=== PATIENT | female | born 1970 | race African-American/Black ===

== ENCOUNTER 2018-05-12 15:04 | Emergency (ER) | payer OTHER ==
[~2018-05-12] VITALS: Ht 157.5 cm; Wt 71.2 kg
[2018-05-12] MEDS ORDERED: IPRATRPIUM/ALBUTEROL 0.5/2.5MG 3 ML NEBU. NEB ONE (15:15)
--- NOTE | 2018-05-12 15:20 | EKG ---
[facility] [address] [place] [address] Test Date: 2018-05-12 Test Time: 15:09:41 Pat Name: CASI COWART Department: Room: Gender: F Business Process Representative: : 1970 Requested By: MICHELINE MONGE Order Number: [id number] Reading MD: Wesley Nation Measurements Intervals [place] Rate: 91 P: 63 MA: 140 QRS: 37 QRSD: 98 T: 31 QT: 340 QTc: 420 Interpretive Statements SINUS RHYTHM INCOMPLETE RIGHT BUNDLE BRANCH BLOCK T ABNORMALITY IN ANTERIOR LEADS Electronically Signed On 05-16-2018 11:07:40 QUALITY INTERN by Wesley Nation
--- NOTE | 2018-05-12 15:24 | PHYS DOC ---
Past Medical History Past Medical History: Depression, High Cholesterol, Hypertension Additional Past Medical Histor: SEASONAL ALLERGIES Past Surgical History: Cholecystectomy, Tubal ligation Alcohol Use: Occasionally Drug Use: Marijuana Adult General Chief Complaint Chief Complaint: CHEST PAIN HPI HPI 47-year-old female presents to ER via POV with complaints of cold-like symptoms with nonproductive cough and congestion which started yesterday. Patient states she was resting and had sudden onset of mid chest pain which increases with coughing episodes. Patient denies pain radiates into extremities, neck, or back. She denies swelling in extremities. Patient reports she's been coughing up yellow phlegm and took ibuprofen 800 mg around 12 PM yesterday which improved her chest pain. Patient denies any other family members with cold-like illness. She denies any GI symptoms reports appetite has been slightly decreased since yest. with onset of sxs. She reports she has not checked her temperature but has felt warm since yesterday. Patient denies urinary symptoms. LMP 04/03/18 with patient reporting she has irregular cycles. Pt denies recent travel. She reports she smokes <1/2 ppd of cigarettes. She denies family CAD hx. HEART score 2. Review of Systems Review of Systems Constitutional: Reports feeling warm. Reports fatigued since onset of cold like sxs Eyes: Denies change in visual acuity, redness, or eye pain [] HENT: Denies sore throat. Reports sinus congestion Respiratory: Reports prod. cough with yellow phlegm Cardiovascular: Reports mid CP GI: Denies abdominal pain, nausea, vomiting, bloody stools or diarrhea [] : Denies urinary sxs Musculoskeletal: Denies back/neck pain or joint pain [] Integument: Denies rash, swelling or skin lesions [] Neurologic: Denies headache, focal weakness or sensory changes. Denies dizziness All other systems were reviewed and found to be within normal limits, except as documented in this note. Current Medications Current Medications Current Medications Medications (Trade) Dose Ordered Sig/Afsaneh Start Time Stop Time Status Last Admin Dose Admin Albuterol/ Ipratropium (Duoneb) 3 ml 1X ONCE 05/12/18 15:15 05/12/18 15:20 DC 05/12/18 15:38 3 ML Prednisone (Prednisone) 50 mg 1X ONCE 05/12/18 15:30 05/12/18 15:31 DC 05/12/18 15:29 50 MG Allergies Allergies Allergies Coded Allergies Type Severity Reaction Last Updated Verified fentanyl Allergy Intermediate RASH 10/11/14 Yes Physical Exam Physical Exam Constitutional: Well developed, well nourished, no acute distress, non-toxic appearance. [] HENT: Normocephalic, atraumatic, bilateral external ears normal- bilat. erythema at TM without bulging/perforation/purulent drainage, oropharynx moist- pharyngeal erythema without tonsillar swelling, no oral exudates, nose normal. [ ] Eyes: Pupils equal, conjunctiva normal, no discharge. [] Neck: Normal range of motion, no tenderness, supple, no stridor. [] Cardiovascular: Heart rate regular rhythm, no murmur [] Lungs & Thorax: Bilateral breath sounds clear to auscultation- diminished air movement in all lung paez with less air movement in bases. Resp. equal/ nonlabored and pt speaking in full sentences Abdomen: Bowel sounds normal, soft, no tenderness, no masses, no pulsatile masses. [] Skin: Warm, dry, no erythema, no rash. [] Back: No tenderness, no CVA tenderness. [] Extremities: No tenderness, no cyanosis, no clubbing, ROM intact, no edema. [] Neurologic: Alert and oriented X 3, normal motor function, normal sensory function, no focal deficits noted. [] Psychologic: Affect normal, judgement normal, mood normal. [] Current Patient Data Vital Signs Vital Signs Date Time Temp Pulse Resp B/P (MAP) Pulse Ox O2 Delivery O2 Flow Rate FiO2 05/12/18 15:41 96 Room Air 05/12/18 15:15 97.9 91 20 157/104 (121) 97.9 Lab Values Laboratory Tests Test 05/12/18 15:15 05/12/18 15:25 05/12/18 15:30 05/12/18 15:33 White Blood Count 7.1 x10^3/uL (4.0-11.0) Red Blood Count 4.32 x10^6/uL (3.50-5.40) Hemoglobin 12.1 g/dL (12.0-15.5) Hematocrit 36.9 % (36.0-47.0) Mean Corpuscular Volume 85 fL (79-100) Mean Corpuscular Hemoglobin 28 pg (25-35) Mean Corpuscular Hemoglobin Concent 33 g/dL (31-37) Red Cell Distribution Width 16.5 % (11.5-14.5) H Platelet Count 312 x10^3/uL (140-400) Neutrophils (%) (Auto) 44 % (31-73) Lymphocytes (%) (Auto) 44 % (24-48) Monocytes (%) (Auto) 7 % (0-9) Eosinophils (%) (Auto) 4 % (0-3) H Basophils (%) (Auto) 1 % (0-3) Neutrophils # (Auto) 3.1 x10^3uL (1.8-7.7) Lymphocytes # (Auto) 3.1 x10^3/uL (1.0-4.8) Monocytes # (Auto) 0.5 x10^3/uL (0.0-1.1) Eosinophils # (Auto) 0.3 x10^3/uL (0.0-0.7) Basophils # (Auto) 0.1 x10^3/uL (0.0-0.2) Sodium Level 140 mmol/L (136-145) Potassium Level 4.3 mmol/L (3.5-5.1) Chloride Level 103 mmol/L (98-107) Carbon Dioxide Level 28 mmol/L (21-32) Anion Gap 9 (6-14) Blood Urea Nitrogen 14 mg/dL (7-20) Creatinine 0.6 mg/dL (0.6-1.0) Estimated GFR (Cockcroft-Gault) 129.1 BUN/Creatinine Ratio 23 (6-20) H Glucose Level 104 mg/dL (70-99) H Calcium Level 9.1 mg/dL (8.5-10.1) Magnesium Level 2.2 mg/dL (1.8-2.4) Total Bilirubin 0.3 mg/dL (0.2-1.0) Aspartate Amino Transferase (AST) 22 U/L (15-37) Alanine Aminotransferase (ALT) 22 U/L (14-59) Alkaline Phosphatase 157 U/L (46-116) H Troponin I Quantitative < 0.017 ng/mL (0.000-0.055) Total Protein 7.5 g/dL (6.4-8.2) Albumin 3.8 g/dL (3.4-5.0) Albumin/Globulin Ratio 1.0 (1.0-1.7) Influenza Type A Antigen Negative (NEGATIVE) Influenza Type B Antigen Negative (NEGATIVE) Urine Collection Type Unknown Urine Color Yellow Urine Clarity Clear Urine pH 6.0 Urine Specific [place] 1.020 Urine Protein Negative mg/dL (NEG-TRACE) Urine Glucose (UA) Negative mg/dL (NEG) Urine Ketones (Stick) Negative mg/dL (NEG) Urine Blood Negative (NEG) Urine Nitrite Negative (NEG) Urine Bilirubin Negative (NEG) Urine Urobilinogen Dipstick 0.2 mg/dL (0.2 mg/dL) Urine Leukocyte Esterase Negative (NEG) Urine RBC 0 /HPF (0-2) Urine WBC 1-4 /HPF (0-4) Urine Squamous Epithelial Cells Many /LPF Urine Bacteria Many /HPF (0-FEW) Urine Mucus Marked /LPF POC Urine HCG, Qualitative Hcg negative (Negative) Laboratory Tests 05/12/18 15:15 Laboratory Tests 05/12/18 15:15 EKG EKG EKG obtained 05/12/18 at [address] Law Sinus rhythm Incomplete rt BBB Rate 91 No STEMI Radiology/Procedures Radiology/Procedures PROCEDURE: CHEST PA & LATERAL Chest, PA and Lateral: Technique: PA and lateral views of the chest were obtained. History: Chest pain. Comparison: 06/09/2011. Findings: The heart and pulmonary vasculature appear within normal limits. The lungs are clear. The pleural margins are clear. Old right rib fractures identified. Impression: No acute chest process is seen. Old multiple right rib fractures. Electronically signed by: Rio Nevarez MD (05/12/2018 4:31 PM) [facility] DICTATED and SIGNED BY: RIO NEVAREZ MD DATE: 05/12/18 1628 Course & Med Decision Making Course & Med Decision Making Pertinent Labs and Imaging studies reviewed. (See chart for details) 1635: She was evaluated in the ER for cold-like symptoms and mid chest pain. Patient reports symptoms started yesterday with onset of mid chest pain around noon. Patient reports she had had a productive cough. At this time patient reports with dose of prednisone and DuoNeb treatment her symptoms have significantly improved. On reevaluation patient has increased air movement throughout all lung paez. Lungs are clear bilateral. Respirations are equal and nonlabored. Patient states she is feeling much better. Discussed test results with the EKG showing no acute ST elevation or STEMI and troponin was < 0.017; flu test was negative. UA negative for infection with negative UCG. Admission was discussed and pt with improved sxs if comfortable with home d/c. Discussed probable viral/resp. illness. Pt was afebrile and current O2 sat on RA is 98% and HR 86. CBC NL. Discussed URI and plans for Rx for prednisone to start tomorrow. Smoking cessation discussed. Pt encouraged to drink plenty of water. Pt to f/u with PCP if sxs persist or with concerns. Education provided on signs and symptoms to return to ER. Discharge instructions were discussed. Patient to follow-up with primary care physician if symptoms persist or with any concerns. Pt's heart score was 2- low probability and pt has had sxs since 12 p.m. yest. No family hx CAD. Dragon Disclaimer Dragon Disclaimer This electronic medical record was generated, in whole or in part, using a voice recognition dictation system. Departure Departure Impression: Primary Impression: Viral syndrome Additional Impressions: URI (upper respiratory infection) Chest pain Disposition: HOME, SELF-CARE Condition: STABLE Referrals: ARY AGUILAR (PCP) Patient Instructions: Chest Pain (Nonspecific), Cough, Adult, Smoking Cessation , Viral Syndrome Additional Instructions: Drink plenty of fluids. Avoid smoking. If symptoms persist or with concerns follow up with primary care physician for reevaluation and further care. Scripts Ibuprofen (IBUPROFEN) 600 Mg Tablet 600 MG PO PRN Q6HRS PRN for PAIN, #30 TAB 0 Refills Prov: MICHELINE MONGE APRN 05/12/18 Prednisone (PREDNISONE) 50 Mg Tablet 1 TAB PO DAILY, #4 TAB 0 Refills Start on 05/13/18 Prov: MICHELINE MONGE APRN 05/12/18 Problem Qualifiers MICHELINE MONGE APRN May 12, 2018 15:24
[2018-05-12] MEDS ORDERED: predniSONE 10 MG TABLET PO ONE (15:30)
[2018-05-12 15:33] LABS: BASO # 0.1 x10^3/uL (0.0-0.2); BASO % 1 % (0-3); EOS # 0.3 x10^3/uL (0.0-0.7); EOS % 4 % (0-3); HEMATOCRIT 36.9 % (36.0-47.0); HEMOGLOBIN 12.1 g/dL (12.0-15.5); LYMPH # 3.1 x10^3/uL (1.0-4.8); LYMPH % 44 % (24-48); MEAN CORPUSCULAR HEMOGLOBIN 28 pg (25-35); MEAN CORPUSCULAR HGB CONC 33 g/dL (31-37); MEAN CORPUSCULAR VOLUME 85 fL (79-100); MONO # 0.5 x10^3/uL (0.0-1.1); MONO % 7 % (0-9); NEUT # 3.1 x10^3uL (1.8-7.7); NEUT % 44 % (31-73); PLATELET COUNT 312 x10^3/uL (140-400); RED BLOOD COUNT 4.32 x10^6/uL (3.50-5.40); RED CELL DISTRIBUTION WIDTH 16.5 % (11.5-14.5); WHITE BLOOD COUNT 7.1 x10^3/uL (4.0-11.0)
[2018-05-12 15:39] LABS: BILIRUBIN,URINE NEGATIVE (NEG); CLARITY,URINE CLEAR; COLOR,URINE YELLOW; NITRITE,URINE NEGATIVE (NEG); PROTEIN,URINE NEGATIVE (NEG-TRACE); UROBILINOGEN,URINE 0.2 mg/dL (0.2 mg/dL)
[2018-05-12 15:43] LABS: CALCIUM 9.1 mg/dL (8.5-10.1); CREATININE 0.6 mg/dL (0.6-1.0); GFR 129.1; POTASSIUM 4.3 mmol/L (3.5-5.1)
[2018-05-12 15:48] LABS: ALBUMIN 3.8 g/dL (3.4-5.0); MAGNESIUM 2.2 mg/dL (1.8-2.4); TOTAL BILIRUBIN 0.3 mg/dL (0.2-1.0); TOTAL PROTEIN 7.5 g/dL (6.4-8.2)
[2018-05-12 15:56] LABS: SQUAMOUS EPITHELIAL CELL,UR MANY /LPF
[2018-05-12 15:57] LABS: BACTERIA,URINE MANY /HPF (0-FEW)
[2018-05-12 15:58] LABS: RBC,URINE 0 /HPF (0-2)
[2018-05-12 16:08] LABS: INFLUENZA A PATIENT NEGATIVE (NEGATIVE); INFLUENZA B PATIENT NEGATIVE (NEGATIVE)
--- NOTE | 2018-05-12 16:34 | RAD ---
Chest, PA and Lateral: Technique: PA and lateral views of the chest were obtained. History: Chest pain. Comparison: 06/09/2011. Findings: The heart and pulmonary vasculature appear within normal limits. The lungs are clear. The pleural margins are clear. Old right rib fractures identified. Impression: No acute chest process is seen. Old multiple right rib fractures. Electronically signed by: Rio Nevarez MD (05/12/2018 4:31 PM) [facility]
[2018-05-12 16:45] VITALS: BP 127/80
[2018-05-12] MEDS ORDERED: PRED50TA PO (16:49)
[2018-05-12] MEDS ORDERED: IBUP-1007 PO (16:53)
== END 2018-05-12 17:06 | disposition home or self-care (01) ==
LOC: ER 15:04
DX: J06.9 Acute upper respiratory infection, unspecified (principal); R07.89 Other chest pain; B34.9 Viral infection, unspecified; I10 Essential (primary) hypertension; E78.00 Pure hypercholesterolemia, unspecified; Z88.4 Allergy status to anesthetic agent
CPT/HCPCS: 36415; 71046; 80053; 81001; 81025; 83735; 84484; 85025; 87086; 87804; 93005; 94640; 99285; J7512; J7620

== ENCOUNTER 2019-10-25 22:08 | Emergency (ER) | payer BC ==
[~2019-10-25] VITALS: Ht 157.5 cm; Wt 71.3 kg
[~2019-10-25 22:08] MED LIST: IBUP-1007 PO; PRED50TA PO
[2019-10-25 22:18] VITALS: BP 133/86
--- NOTE | 2019-10-25 22:20 | PHYS DOC ---
Past Medical History Past Medical History: Depression, High Cholesterol, Hypertension Additional Past Medical Histor: SEASONAL ALLERGIES Past Surgical History: Cholecystectomy, Tubal ligation Smoking Status: Current Every Day Smoker Alcohol Use: Occasionally Drug Use: Marijuana General Adult EDM: Chief Complaint: HYPERTENSION HPI: HPI: Patient is a 48 year old female who presented to ER today for evaluation of e levated blood pressure at work. Patient says she has been under a lot of stress at work, she had not received a paycheck for 2 weeks. Patient went to confront her boss today at work, then she started having headache, some tingling sensation on her right finger so they checked her blood pressure at work and it was 160/100. They told her to come to ER for evaluation. Patient has history of hypertension, she is on medication at home for. Patient denies any suicidal ideation, denies any homicidal patient. Patient denies any chest pain or any trouble breathing. Patient denies any memory problem, no slurred speech, no weakness or numbness anywhere. Review of Systems: Review of Systems: Constitutional: Denies fever or chills. [] Eyes: Denies change in visual acuity. [] HENT: Denies nasal congestion or sore throat. [] Respiratory: Denies cough or shortness of breath. [] Cardiovascular: Denies chest pain or edema. [] GI: Denies abdominal pain, nausea, vomiting, bloody stools or diarrhea. [] : Denies dysuria. [] Musculoskeletal: Denies back pain or joint pain. [] Integument: Denies rash. [] Neurologic: Denies headache, focal weakness or sensory changes. [] Endocrine: Denies polyuria or polydipsia. [] Lymphatic: Denies swollen glands. [] Psychiatric: Denies depression or anxiety. [] Heart Score: Risk Factors: Risk Factors: DM, Current or recent (<one month) smoker, HTN, HLP, family history of CAD, obesity. Risk Scores: Score 0 - 3: 2.5% MACE over next 6 weeks - Discharge Home Score 4 - 6: 20.3% MACE over next 6 weeks - Admit for Clinical Observation Score 7 - 10: 72.7% MACE over next 6 weeks - Early Invasive Strategies Allergies: Allergies: Allergies Coded Allergies Type Severity Reaction Last Updated Verified fentanyl Allergy Intermediate RASH 10/11/14 Yes Physical Exam: PE: Constitutional: Well developed, well nourished, no acute distress, non-toxic appearance. [] HENT: Normocephalic, atraumatic, bilateral external ears normal, oropharynx moist, no oral exudates, nose normal. [] Eyes: PERRLA, EOMI, conjunctiva normal, no discharge. [] Neck: Normal range of motion, no tenderness, supple, no stridor. [] Cardiovascular:Heart rate regular rhythm, no murmur [] Lungs & Thorax: Bilateral breath sounds clear to auscultation [] Abdomen: Bowel sounds normal, soft, no tenderness, no masses, no pulsatile masses. [] Skin: Warm, dry, no erythema, no rash. [] Back: No tenderness, no CVA tenderness. [] Extremities: No tenderness, no cyanosis, no clubbing, ROM intact, no edema. [] Neurologic: Alert and oriented X 3, normal motor function, normal sensory function, no focal deficits noted. [] Psychologic: Affect normal, judgement normal, mood normal. [] EKG: EKG: [] Radiology/Procedures: Radiology/Procedures: [] Course & Med Decision Making: Course & Med Decision Making Pertinent Labs and Imaging studies reviewed. (See chart for details) Patient is a 48-year-old female who was evaluated in the ER due to high blood pressure, having anxiety panic attack at work. Her blood pressure was normalized in the Er without any treatment. Patient feels much better denies any chest pain, no trouble breathing, no abdominal pain, nausea vomiting. Patient denies suicidal ideation, no weakness or numbness anywhere. No further work-up needed at this time. Patient was discharged home. Dragon Disclaimer: Ben Disclaimer: This electronic medical record was generated, in whole or in part, using a voice recognition dictation system. Departure Departure Impression: Primary Impression: Stress at work Additional Impression: Anxiety Disposition: 01 HOME, SELF-CARE Condition: IMPROVED Referrals: CIRA SINGH APRN (PCP) PLEASE FOLLOW UP WITH YOUR DOCTOR NEEDED Patient Instructions: Anxiety and Panic Attacks Additional Instructions: Thank you for visiting our Emergency Department. We appreciate you trusting us with your care. If any additional problems come up don't hesitate to return to visit us. Please follow up with your primary care provider so they can plan additional care if needed and know about the problem that you had. If symptoms worsen come back to the Emergency Department. Any concerning symptoms that start such as chest pain, shortness of air, weakness or numbness on one side of the body, running high fevers or any other concerning symptoms return to the ER. Justicifation of Admission Dx: Justifications for Admission: Justification of Admission Dx: N/A LILIANA RIDLEY DO Oct 25, 2019 22:20
== END 2019-10-25 22:48 | disposition home or self-care (01) ==
LOC: ER 22:08
DX: R51 Headache (principal); R20.2 Paresthesia of skin; F41.8 Other specified anxiety disorders; F43.9 Reaction to severe stress, unspecified; F32.9 Major depressive disorder, single episode, unspecified; E78.00 Pure hypercholesterolemia, unspecified; I10 Essential (primary) hypertension; F17.200 Nicotine dependence, unspecified, uncomplicated; F12.90 Cannabis use, unspecified, uncomplicated; Z90.49 Acquired absence of other specified parts of digestive tract; Z98.51 Tubal ligation status; Z88.6 Allergy status to analgesic agent
CPT/HCPCS: 99281

== ENCOUNTER 2021-02-03 17:41 | Emergency (ER) | payer BC ==
[~2021-02-03] VITALS: Ht 157.5 cm; Wt 72.7 kg
[2021-02-03 17:45] VITALS: BP 140/84
--- NOTE | 2021-02-03 18:21 | PHYS DOC ---
Past Medical History Past Medical History: Depression, High Cholesterol, Hypertension Additional Past Medical Histor: SEASONAL ALLERGIES Past Surgical History: Cholecystectomy, Tubal ligation Smoking Status: Current Every Day Smoker Alcohol Use: Occasionally Drug Use: Marijuana General Adult EDM: Chief Complaint: FACE PROBLEM HPI: HPI: Patient is a 50-year-old female that presents today with left swollen area in front of her left ear. Patient denies trauma or dental caries. Patient states she woke up with this in the morning it was a little bit more swollen she put a warm towel on her face she said the swelling got better she said but it still there and she feels like there is a more solid mass that she can feel. Review of Systems: Review of Systems: Constitutional: Denies fever or chills. [] Eyes: Denies change in visual acuity. [] HENT: Left ear canal pain, swelling in area of jaw joint Respiratory: Denies cough or shortness of breath. [] Cardiovascular: Denies chest pain or edema. [] GI: Denies abdominal pain, nausea, vomiting, bloody stools or diarrhea. [] : Denies dysuria. [] Musculoskeletal: Denies back pain or joint pain. [] Integument: Denies rash. [] Neurologic: Denies headache, focal weakness or sensory changes. [] Endocrine: Denies polyuria or polydipsia. [] Lymphatic: Denies swollen glands. [] Psychiatric: Denies depression or anxiety. [] Heart Score: C/O Chest Pain: N/A Risk Factors: Risk Factors: DM, Current or recent (<one month) smoker, HTN, HLP, family history of CAD, obesity. Risk Scores: Score 0 - 3: 2.5% MACE over next 6 weeks - Discharge Home Score 4 - 6: 20.3% MACE over next 6 weeks - Admit for Clinical Observation Score 7 - 10: 72.7% MACE over next 6 weeks - Early Invasive Strategies Allergies: Allergies: Allergies Coded Allergies Type Severity Reaction Last Updated Verified fentanyl Allergy Intermediate RASH 10/11/14 Yes Physical Exam: PE: Constitutional: Well developed, well nourished, no acute distress, non-toxic appearance. [] HENT: Normocephalic, atraumatic, bilateral external ears normal, tympanic membrane bilaterally normal, patient does complain of pain when external ear canal is palpated, she also has an palpable mass just to the front of the ear canal no redness or warmth noted. Mouth is free of any ulcerations on the left side or dental caries. There is a small 1 cm x 1 cm palpable mass there, lymph node in nature Eyes: PERRLA, EOMI, conjunctiva normal, no discharge. [] Neck: Normal range of motion, no tenderness, supple, no stridor. [] Cardiovascular:Heart rate regular rhythm, no murmur [] Lungs & Thorax: Bilateral breath sounds clear to auscultation [] Abdomen: Bowel sounds normal, soft, no tenderness, no masses, no pulsatile masses. [] Skin: Warm, dry, no erythema, no rash. [] Back: No tenderness, no CVA tenderness. [] Extremities: No tenderness, no cyanosis, no clubbing, ROM intact, no edema. [] Neurologic: Alert and oriented X 3, normal motor function, normal sensory function, no focal deficits noted. [] Psychologic: Affect normal, judgement normal, mood normal. [] Current Patient Data: Vital Signs: Vital Signs Date Time Temp Pulse Resp B/P (MAP) Pulse Ox O2 Delivery O2 Flow Rate FiO2 02/03/21 17:45 97.9 86 18 140/84 (102) 99 Room Air 97.9 EKG: EKG: [] Radiology/Procedures: Radiology/Procedures: [] Course & Med Decision Making: Course & Med Decision Making Pertinent Labs and Imaging studies reviewed. (See chart for details) We will treat patient for a parotid lymph node inflammation Ben Disclaimer: Ben Disclaimer: This electronic medical record was generated, in whole or in part, using a voice recognition dictation system. Departure Departure Impression: Primary Impression: Parotid swelling Disposition: HOME / SELF CARE / HOMELESS Condition: STABLE Referrals: CIRA SINGH APRN (PCP) Additional Instructions: Take antibiotics as directed until the entire course is complete Follow-up with your primary care physician on Tuesday if swelling continues they may need to refer you to a specialist for further management of this Return to the emergency department if you have increased pain, swelling, inability to swallow, or start running a fever or have increased redness at the site. Scripts Cephalexin (CEPHALEXIN) 500 Mg Tablet 1 CAP PO BID for lymph node swelling for 10 Days, #20 TAB Prov: JANA BLACK APRN 02/03/21 JANA BLACK MILLED RICE BROKER Feb 03, 2021 18:21
[2021-02-03] MEDS ORDERED: CEPH500T PO (18:27)
== END 2021-02-03 18:39 | disposition home or self-care (01) ==
LOC: ER 17:41
DX: K11.8 Other diseases of salivary glands (principal); E78.00 Pure hypercholesterolemia, unspecified; I10 Essential (primary) hypertension; F17.200 Nicotine dependence, unspecified, uncomplicated; Z88.4 Allergy status to anesthetic agent
CPT/HCPCS: 99283